=== PATIENT | female | born 2000 | race Caucasian/White ===

== ENCOUNTER 2023-03-20 11:53 | Day surgery (SDC) | payer BC ==
[2023-03-18 14:01] VITALS: BMI 27.0
[2023-03-20 12:23] LABS: Hemoglobin 14.1 g/dL (12.0-15.5); Mean Corpuscular HGB CONC 33.7 g/dL (32.0-36.0); Mean Corpuscular Hemoglobin 30.4 pg (27.0-33.0); Mean Corpuscular Volume 90.1 fl (81.6-98.3); Mean Platelet Volume 10.7 fl (7.4-10.4); Platelet Count 194 10x3/uL (150-450); Red Blood Cell (RBC) Count 4.64 10x6/uL (3.90-5.03); White Blood Cell (WBC) Count 8.5 10x3/uL (3.5-10.5)
[2023-03-20] MEDS ORDERED: CEFAZOLIN 2 GM VIAL ONE (12:45)
[2023-03-20] MEDS ORDERED: Midazolam HCl 2 mg/2 ml Vial ONE (13:20)
[2023-03-20] MEDS ORDERED: Fentanyl 100 MCG/2 ML VIAL ONE (13:20)
[2023-03-20] MEDS ORDERED: Lidocaine 1% PF 5 ML VIAL ONE (13:21)
[2023-03-20] MEDS ORDERED: Esmolol 100 MG/10 ML VIAL ONE (13:22)
[2023-03-20] MEDS ORDERED: Ketorolac Tromethamine 30 MG/ML VIAL ONE (13:36)
[2023-03-20] MEDS ORDERED: Ondansetron PF 4 MG/2 ML Vial ONE (13:36)
[2023-03-20] MEDS ORDERED: Dexamethasone 4 mg/ml Vial ONE (13:36)
== END 2023-03-20 15:00 | disposition home or self-care (01) ==
LOC: CSHSDC 11:53
PROVIDERS: ATTEND Obstetrics & Gynecology
PROC: 10D17ZZ Extraction of Products of Conception, Retained, Via Natural or Artificial Opening (ICD-10-PCS; principal; 2023-03-20)
DX: O02.1 Missed abortion (principal)
CPT/HCPCS: 36415; 85027; 86850; 86900; 86901; 88305; 90384; 96372; J1100; J1885; J2250; J2405; J3010